=== PATIENT | female | born 1955 | race Caucasian/White ===

== ENCOUNTER 2020-01-06 10:58 | Emergency (ER) | payer MEDICARE, SELFPAY ==
--- NOTE | 2020-01-06 11:01 | ED.GENADULT ---
HPI - General Adult General Chief complaint: Upper Respiratory Infection Stated complaint: fever and ears Time Seen by Provider: 01/06/20 11:14 Source: patient Mode of arrival: ambulatory Limitations: no limitations History of Present Illness HPI narrative: 64-year-old female patient presents to the [facility] with complaints of cold symptoms that started abruptly yesterday about 11 PM. Patient states that she has had fevers as high as 101, scratchy throat and bilateral ear pain more so on the right than the left. Patient denies any coughing, chest pain, shortness of breath, abdominal pain, nausea, vomiting or diarrhea. Patient states that she did get a flu shot this year. Related Data Home Medications Medication Instructions Recorded Confirmed benazepril 01/06/20 Allergies Allergy/AdvReac Type Severity Reaction Status Date / Time Sulfa (Sulfonamide Allergy Rash Verified 01/06/20 11:21 Antibiotics) Review of Systems Review of Systems: Narrative: CONSTITUTIONAL: Positive fever, denies chills, or sweats. EYES: Denies visual changes, redness, or discharge. ENT: Denies rhinorrhea, congestion, positive sore throat, positive bilateral otalgia. CARDIOVASCULAR: Denies chest pain, palpitations, or edema. RESPIRATORY: Denies cough or dyspnea. GASTROINTESTINAL: Denies abdominal pain, nausea, vomiting, or diarrhea. GENITOURINARY: Denies dysuria or hematuria. SKIN: Denies rash or itching. MUSCULOSKELETAL: Denies back pain, joint pain, or myalgia. NEUROLOGIC: Denies headache, numbness, or weakness. PSYCHIATRIC: Denies anxiety or depression. FORMERLY [facility] Social History Social History Gender identity (if verbalized by the patient): Female Comments At the time of my signature I agree with nursing past medical history, surgical, social, and family history. There is no relevant family history pertinent to the presenting complaint. Exam Narrative: Exam Narrative: GENERAL: Well-appearing, well-nourished, and in no acute distress. HEAD: Normocephalic, atraumatic. No tenderness noted to frontal maxillary sinuses on palpation EYES: PERRLA and EOMI. ENT: Nares clear, no rhinorrhea or epistaxis. Mucous membranes moist. Posterior pharynx with no erythema, tonsillar margin, exudates or lesions present. There is scarring noted to bilateral TMs but no erythema. Slight fluid noted behind right TM. NECK: Supple. No lymphadenopathy CHEST: Clear to auscultation. No respiratory distress. HEART: Regular rate and rhythm. No murmur heard. Normal peripheral pulses. ABDOMEN: Soft, nontender, nondistended, normal active bowel sounds. EXTREMITIES: Normal range of motion. No edema. SKIN: Warm, dry, no rash. NEURO: No focal deficits. Alert and oriented x3. Course Vital Signs Vital signs: Vital Signs Temperature 37.4 C 01/06/20 11:10 Pulse Rate 100 01/06/20 11:10 Respiratory Rate 22 H 01/06/20 11:10 Blood Pressure 135/85 01/06/20 11:10 Pulse Oximetry 98 01/06/20 11:10 Temperature 37.4 C 01/06/20 11:10 Pulse Rate 100 01/06/20 11:10 Respiratory Rate 22 H 01/06/20 11:10 Blood Pressure 135/85 01/06/20 11:10 Pulse Oximetry 98 01/06/20 11:10 Vital signs reviewed. Medical Decision Making Differential Diagnosis Differential Diagnosis: Differential diagnosis: Otitis media, otitis externa, perforated TM, infection of the outer ear, foreign body or cerumen impaction, ruptured TM, acute mastoiditis, ligament otitis externa, dehydration, pneumonia, sepsis, dental or intraoral infection, TMJ dysfunction Discussed with patient that this is most likely viral or could be due to allergies for her symptoms. Recommend patient take [id number] Zyrtec and Flonase for her fluid behind her ears that should help with the pain continue taking Tylenol she has been. Discussed with patient that if she continues to have worsening symptoms she would need to follow-up with her prim
[2020-01-06 11:10] VITALS: BP 135/85; PULSE 100; RESP 22; TEMP 37.4; O2SAT 98
== END 2020-01-06 11:29 | disposition home or self-care (01) ==
PROVIDERS: Emergency Provider Nurse Practitioner Family
DX: J06.9 Acute upper respiratory infection, unspecified (principal); H93.8X1 Other specified disorders of right ear; I10 Essential (primary) hypertension
CPT/HCPCS: 99211; G0463